=== PATIENT | male | born 2005 | race Two or more races ===

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

== ENCOUNTER 2024-12-08 07:15 | Outpatient (CLI) | payer OTHER | END 2024-12-08 07:20 | disposition home or self-care (01) | LOC: TOM 07:15 | PROVIDERS: ATTEND General Practice | DX: K57.30 Diverticulosis of large intestine without perforation or abscess without bleeding (principal) ==